=== PATIENT | female | born 1965 | race Hispanic/Latino ===

== ENCOUNTER 2019-06-19 05:06 | Emergency (ER) | payer OTHER ==
[2019-06-19 05:32] LABS: APPEARANCE,URINE Clear (CLEAR); BILIRUBIN,URINE Negative (NEGATIVE); COLOR,URINE Yellow (YELLOW); GLUCOSE, URINE (UA) Negative (NEGATIVE); KETONES,URINE Negative (NEGATIVE); LEUKOCYTE ESTERASE ,URINE Trace (NEGATIVE); NITRATE,URINE Negative (NEGATIVE); OCCULT BLOOD,URINE Negative (NEGATIVE); PROTEIN,URINE Negative (NEGATIVE)
[2019-06-19] MEDS ORDERED: ONDANSETRON HCL 4 MG/2 ML VIAL ONE (05:41)
[2019-06-19] MEDS ORDERED: METOCLOPRAMIDE 10 MG/2 ML VIAL ONE (05:41)
[2019-06-19] MEDS ORDERED: SODIUM CHLORIDE 0.9% 1000ML 2,000 ML IV ONE (05:41)
[2019-06-19 05:46] LABS: BASOPHILS % (AUTO) 0.8 % (0.0-5.0); HEMATOCRIT 41.1 % (36-48); LYMPHOCYTES % (AUTO) 23.6 % (21.0-51.0); MEAN CORPUSCULAR HEMOGLOBIN 29.9 pg (27.0-33.0); MEAN CORPUSCULAR HGB CONC 33.6 g/dL (32.0-36.0); MONOCYTES % (AUTO) 5.8 % (3.0-13.0); NEUTROPHILS % (AUTO) 67.8 % (40.0-77.0); PLATELET COUNT (AUTO) 228 K/uL (130-400); RED BLOOD CELL COUNT(AUTO) 4.62 MIL/uL (4.00-5.50); WHITE BLOOD COUNT (AUTO) 7.4 K/uL (4.8-10.8)
[2019-06-19 05:56] LABS: BACTERIA,URINE Few /HPF (None Seen); RBC,URINE None Seen /HPF (0-1); SQUAMOUS EPITHELIAL CELL,UR Few /HPF (0-2); WBC,URINE 0-1 /HPF (0-1)
[2019-06-19 05:59] LABS: CREATININE 0.8 mg/dL (0.5-1.5); POTASSIUM 4.3 mmol/L (3.5-5.1)
[2019-06-19 06:02] LABS: INR 0.92 (0.85-1.15); PARTIAL THROMBOPLASTIN TIME 28.7 SEC (26.3-35.5); PROTHROMBIN TIME 9.7 SEC (9.6-11.6)
[2019-06-19 06:03] LABS: ALBUMIN 3.6 g/dL (3.5-5.0); BILIRUBIN,TOTAL 0.3 mg/dL (0.2-1.0); TOTAL PROTEIN, SERUM 7.4 g/dL (6.0-8.3)
[2019-06-19] MEDS ORDERED: KETOROLAC TROMETHAMINE 30MG/ML ONE (06:03)
[2019-06-19] MEDS ORDERED: DiphenhydrAMINE HCL 50 MG/ML VIAL ONE (06:42)
== END 2019-06-19 06:54 | disposition home or self-care (01) ==
LOC: EDH 05:06
DX: K80.20 Calculus of gallbladder without cholecystitis without obstruction (principal); R11.2 Nausea with vomiting, unspecified; E78.5 Hyperlipidemia, unspecified; K21.9 Gastro-esophageal reflux disease without esophagitis; F41.9 Anxiety disorder, unspecified; I10 Essential (primary) hypertension; Z98.890 Other specified postprocedural states
CPT/HCPCS: 36415; 71045; 76705; 80053; 81001; 82550; 83605; 83690; 84484; 85025; 85610; 85730; 93005; 96361; 96374; 96375; 99285; J1200; J1885; J2405; J2765; J7030